=== PATIENT | female | born 1950 | race African-American/Black ===

== ENCOUNTER 2017-02-24 05:47 | Day surgery (SDC) | payer OTHER, BC ==
[2017-02-20 16:14] VITALS: BMI 41.9
[2017-02-24] MEDS ORDERED: MIDAZOLAM HCL 2 MG/2 ML SINGLE DOSE VIAL ONE ×2 (06:30→08:09)
[2017-02-24] MEDS ORDERED: DEXAMETHASONE SOD PHOSPHATE/PF 10 MG/ML SDV ONE (06:30)
[2017-02-24] MEDS ORDERED: ROPIVACAINE HCL 0.5% 30ML VIAL ONE (06:30)
[2017-02-24] MEDS ORDERED: EPINEPHrine 1:1,000 1 MG/1 ML - 30ML VIAL (INJECTION) ONE (07:09)
[2017-02-24] MEDS ORDERED: SUCCINYLCHOLINE CHLORIDE 200 MG/10 ML VIAL ONE (07:50)
[2017-02-24] MEDS ORDERED: PROPOFOL 20 ML ONE ×2 (07:50→08:51)
[2017-02-24] MEDS ORDERED: ONDANSETRON 4 MG/2 ML VIAL ONE ×2 (08:13→09:15)
[2017-02-24] MEDS ORDERED: ceFAZolin SODIUM 1 GM VIAL ONE (08:13)
[2017-02-24] MEDS ORDERED: ONDANSETRON 4 MG/2 ML VIAL IVPUSH PRN (08:33)
[2017-02-24] MEDS ORDERED: oxyCODONE HCL 5 MG TABLET PO PRN ×2 (08:33)
[2017-02-24] MEDS ORDERED: LACTATED RINGERS SOLUTION 1,000 ML IV SCH (08:45)
[2017-02-24 10:37] VITALS: TEMP 97.5
[2017-02-24 14:07] VITALS: BP 128/74; PULSE 73
--- NOTE | 2017-03-04 16:49 | OP ---
DATE OF OPERATION: 02/24/2017 SURGEON: Dwain Cage MD [employer] SUPERVISOR: KAYLA Cortez PREOPERATIVE DIAGNOSES: 1. Right shoulder rotator cuff tear. 2. Right shoulder impingement syndrome. 3. Right shoulder acromioclavicular degenerative joint disease. 4. Right shoulder superior labral tear with anterior-posterior synovitis. POSTOPERATIVE DIAGNOSES: 1. Right shoulder rotator cuff tear. 2. Right shoulder impingement syndrome. 3. Right shoulder acromioclavicular degenerative joint disease. 4. Right shoulder superior labral tear with anterior-posterior synovitis. PROCEDURES PERFORMED: 1. Right shoulder arthroscopy with arthroscopic rotator cuff repair. 2. Right shoulder arthroscopy with subacromial decompression. 3. Right shoulder arthroscopy with resection of the distal clavicle and acromioclavicular joint. 4. Right shoulder arthroscopy with debridement/major. CPT CODES: 51136, 84905, 61651, 40860. FINDINGS: 1. Extensive tearing of the biceps tendon, greater than 85%. 2. Superior labral tear, anterior to posterior, extending into the biceps tendon. 3. Full-thickness rotator cuff tear. 4. Type 2 to 3 acromion with anterolateral spurring. 5. Thickened scar tissue in the subacromial space. 6. spurs of the clavicle with acromioclavicular degenerative joint disease. REPAIR TYPE: The biceps tendon was released due to extensive tearing. Three mattress sutures were placed into the supraspinatus and secured to the bleeding bone bed during the open technique. DESCRIPTION OF PROCEDURE: Informed consent was obtained. The patient was taken to the operating room where the upper extremity was prepped and draped in a sterile fashion. The shoulder was manipulated for a full range of motion. A posterior incision portal was made and directed toward the glenohumeral joint. Under direct visualization, an anterior incision and portal were made. Extensive synovitis, as well as chondral injuries throughout the glenohumeral joint, were debrided and removed. Any identified labral injuries, including superior labral tear, anterior and posterior, and anterior labrum torn portions, were removed as well. The rotator cuff was visualized and noted to have a full-thickness tear. The edges were debrided. The posterior incision portal was redirected to the subacromial space where a lateral incision portal was made. Excessive and thickened scar tissue was noted throughout the subacromial space, including bursal and scar tissue, and removed. The type 2 acromion was converted into a flattened type 1 using a ritu for subacromial decompression. A distal inferior spur at the distal clavicle was also debrided with the use of an accessory portal in the AC joint. The edges of the rotator cuff were identified. Sutures were placed into the rotator cuff and secured using anchors throughout the greater tuberosity. Prior to securing, a bleeding bed was made using a small ritu, creating a bleeding surface for the rotator cuff insertion. The shoulder was then drained. A single suture as placed in all portals and a sterile dressing was placed. The patient was transferred to the recovery room without complication. ADDENDUM: Please note the distal clavicle resection included undersurface 1-cm clavicle extending into the intra-articular portion. DWAIN CAGE M.D. [id number]
== END 2017-02-24 12:25 | disposition home or self-care (01) ==
LOC: FASU 05:47
PROVIDERS: ATTEND Orthopaedic Surgery
PROC: 0RNJ4ZZ Release Right Shoulder Joint, Percutaneous Endoscopic Approach (ICD-10-PCS; 2017-02-24)
PROC: 0PB94ZZ Excision of Right Clavicle, Percutaneous Endoscopic Approach (ICD-10-PCS; 2017-02-24)
PROC: 0RBJ4ZZ Excision of Right Shoulder Joint, Percutaneous Endoscopic Approach (ICD-10-PCS; 2017-02-24)
PROC: 0LB14ZZ Excision of Right Shoulder Tendon, Percutaneous Endoscopic Approach (ICD-10-PCS; principal; 2017-02-24 07:30)
DX: M75.101 Unspecified rotator cuff tear or rupture of right shoulder, not specified as traumatic (principal); M75.41 Impingement syndrome of right shoulder; M19.011 Primary osteoarthritis, right shoulder; M24.111 Other articular cartilage disorders, right shoulder
CPT/HCPCS: 94010; 94760

== ENCOUNTER 2018-08-13 22:25 | Observation (INO) | payer OTHER, BC ==
--- NOTE | 2018-08-13 22:52 | PDOC ---
History of Present Illness - General Chief Complaint: Chest Pain Stated Complaint: CHEST PAIN SINCE THIS AM Time Seen by Provider: 08/13/18 22:32 History Source: Patient Exam Limitations: No Limitations - History of Present Illness Initial Comments: 08/13/18 22:59 This is a 67-year-old female who comes in complaining of chest pain and shortness of breath. Patient said that her was diagnosed with pancreatic cancer approximately one year ago when he has not been doing well even though his scans are coming back negative. Patient is very concerned that she is going to lose him. Patient said that over the last several weeks she has had chest tightness and discomfort with the associated shortness of breath. Patient thinks it is secondary to her anxiety and concern inferior over the potential loss of her however she did have a NC in the past so wants to make sure that it is not anything more serious. Patient describes the chest discomfort as substernal and left-sided and describes it with a sensation as a heaviness. Allergies: as per nursing notes Past Medical History: none Social history: Lives with family. No smoking. No alcohol. No illicit drugs. Surgical history: None General: No fevers or chills, no weakness, no weight loss HEENT: No change in vision. No sore throat,. No ear pain CardioVascular: + chest discomfort. + shortness of breath Respiratory:No cough, or wheezing. Gastrointestinal: no nausea, vomiting, diarrhea or constipation, No rectal bleeding Genitourinary: No dysuria, hematuria, or frequency Musculoskeletal: No joint or muscle pain or swelling Neurologic: No headache, vertigo, dizziness or loss of consciousness Psychiatric: nor depression Skin: No rashes or easy bruising Endocrine: no increased thirst or abnormal weight change Allergic: no skin or latex allergy All other systems reviewed and normal Exam: General: Well-nourished well-developed individual, tearful and anxious HEENT: Throat: Normal, tonsils normal, no erythema or exudate Neck: Supple, no meningeal signs, no lymphadenopathy Eyes::Pupils equal reactive and round, extraocular motion intact Chest: Nontender to palpation Cardiac: S1-S2 normal, regular rate and rhythm, no murmurs rubs or gallops Respiratory: Lungs clear to auscultation bilateral Abdomen: Soft, nondistended, normal bowel sounds, there is no tenderness on palpation diffusely Extremities: Warm, dry, no cyanosis, clubbing, or edema Skin: No rashes Neuro: Alert and oriented x3, CN II - XII intact, nonfocal exam with normal strength, normal sensation, normal reflexes, normal gait, Psych: Normal mood and affect 08/13/18 23:57 08/14/18 00:18 Chest x-ray no acute pathology Assessment and plan: This is a 67-year-old female who comes in complaining of left-sided chest pain. Patient said heart score is 4. Based on her age and risk factors. Patient's EKG shows no acute changes patient will get an observation telemetry bed. Discussed with the hospitalist. Past History - Past Medical History Allergies/Adverse Reactions: Allergies Allergy/AdvReac Type Severity Reaction Status Date / Time No Known Allergies Allergy Verified 02/20/17 16:17 Home Medications: Ambulatory Orders Aspirin [ASA -] 81 mg PO DAILY 02/20/17 Irbesartan/Hydrochlorothiazide [Avalide 300-12.5 mg Tablet] 1 tab PO DAILY 02/20 Zolpidem Tartrate [Ambien] 10 mg PO HS 02/20/17 Anemia: No Asthma: No Cancer: No Cardiac Disorders: Yes (NC -1992,palpitations) CVA: No COPD: No CHF: No Dementia: No Diabetes: No GI Disorders: Yes (acid reflux) Disorders: No HTN: Yes Hypercholesterolemia: No Liver Disease: No Seizures: Yes (last in September 2016) Thyroid Disease: Yes - Surgical History Abdominal Surgery: Yes (gastric bypass) Appendectomy: No Cardiac Surgery: No Cholecystectomy: No Lung Surgery: No Neurologic Surgery: No - Suicide/Smoking/Psychosocial Hx Smoking History: Never smoked Have you smoked in the past 12 months: No Information on smoking cessation initiated: No Hx Alcohol Use: No Drug/Substance Use Hx: No Substance Use Type: None Cardiac Specific PMH - Complaint Specific PMHX Pacemaker: No *Physical Exam - Vital Signs Last Vital Signs Temp Pulse Resp BP Pulse Ox 98 F 76 18 137/79 99 08/13/18 22:41 08/14/18 00:10 08/13/18 22:41 08/14/18 00:10 08/14/18 00:10 Heart Score/ECG Review - History History: Slightly suspicious - Electrocardiogram EKG: Non specific repolarization disturbance - Age Age: >/= 65 - Risk Factors Risk Factors Heart Score: Yes Hx Hypertension Based on the list above the patient has:: 1-2 risk factors - Troponin Troponin: </= normal limit - Score Heart Score - Total: 4 Moderate Sedation - Procedure Monitoring Vital Signs: Procedure Monitoring Vital Signs Temperature 98 F 08/13/18 22:41 Pulse Rate 76 08/14/18 00:10 Respiratory Rate 18 08/13/18 22:41 Blood Pressure 137/79 08/14/18 00:10 O2 Sat by Pulse Oximetry (%) 99 08/14/18 00:10 ED Treatment Course - LABORATORY CBC & Chemistry Diagram: 08/13/18 23:07 08/13/18 23:07 - ADDITIONAL ORDERS Additional order review: Laboratory Results 08/13/18 08/13/18 08/13/18 23:10 23:07 23:07 Sodium Potassium Chloride Carbon Dioxide Anion Gap BUN Creatinine Creat Clearance w eGFR Random Glucose Calcium Total Bilirubin AST ALT Alkaline Phosphatase Creatine Kinase 507 H Creatine Kinase Index 0.8 CK-MB (CK-2) 4.4 H Troponin I < 0.03 Total Protein Albumin Urine Color Yellow Urine Appearance Clear Urine pH 6.0 Ur Specific [place] 1.010 Urine Protein Negative Urine Glucose (UA) Negative Urine Ketones Negative Urine Blood Negative Urine Nitrite Negative Urine Bilirubin Negative Urine Urobilinogen 0.2 Ur Leukocyte Esterase Negative 08/13/18 23:07 Sodium 138 Potassium 3.5 Chloride 98 Carbon Dioxide 26 Anion Gap 14 BUN 10 Creatinine 0.9 Creat Clearance w eGFR 62.08 Random Glucose 103 Calcium 9.7 Total Bilirubin 1.0 AST 29 ALT 19 Alkaline Phosphatase 98 Creatine Kinase Creatine Kinase Index CK-MB (CK-2) Troponin I Total Protein 7.4 Albumin 4.6 Urine Color Urine Appearance Urine pH Ur Specific [place] Urine Protein Urine Glucose (UA) Urine Ketones Urine Blood Urine Nitrite Urine Bilirubin Urine Urobilinogen Ur Leukocyte Esterase 08/13/18 23:07 RBC 5.60 H MCV 85.0 MCHC 31.8 L RDW 14.9 MPV 8.4 Neutrophils % 57.2 Lymphocytes % 30.5 Monocytes % 9.1 Eosinophils % 1.0 Basophils % 2.2 H - RADIOLOGY Radiology Studies Ordered: Category Date Time Status CHEST X-RAY PORTABLE* [RAD] Stat Radiology 08/13/18 22:57 Taken - Medications Given in the ED: ED Medications Discontinued Medications Generic Name Dose Route Start Last Admin Trade Name Freq PRN Reason Stop Dose Admin Lorazepam 2 mg 08/13/18 22:57 08/13/18 23:07 Ativan - PO 08/13/18 22:58 2 mg ONCE ONE Administration *DC/Admit/Observation/Transfer Diagnosis at time of Disposition: Chest pain Qualifiers: Chest pain type: unspecified Qualified Code(s): R07.9 - Chest pain, unspecified - Discharge Dispostion Condition at time of disposition: Stable Decision to Admit order: Yes Decision to Admit order Date/Time: Decision to Admit Order Category Date Time Status Decision to Admit to Hospital Routine Admission 08/13/18 23:58 Active - Referrals - Patient Instructions - Post Discharge Activity
[2018-08-13] MEDS ORDERED: LORazepam 1 MG TABLET PO ONE (22:57)
[2018-08-13] MEDS ORDERED: LORazepam 0.5 MG TABLET ONE (23:07)
[2018-08-13 23:18] LABS: URINE APPEARANCE CLEAR; URINE BILIRUBIN NEGATIVE (NEGATIVE); URINE COLOR YELLOW; URINE GLUCOSE (UA) NEGATIVE (NEGATIVE); URINE KETONE NEGATIVE (NEGATIVE); URINE LEUK ESTERASE NEGATIVE (NEGATIVE); URINE NITRITE NEGATIVE (NEGATIVE); URINE PROTEIN NEGATIVE (NEGATIVE); URINE UROBILINOGEN 0.2 (0.2-1.0)
[2018-08-13 23:18] LABS: BASO % 2.2 % (0-2.0); HEMATOCRIT 47.6 % (32.4-45.2); HEMOGLOBIN 15.1 GM/dl (10.7-15.3); LYMPH % 30.5 % (8-40); MCHC 31.8 g/dl (32.0-36.0); MEAN PLT VOLUME 8.4 fl (7.5-11.1); MONO % 9.1 % (3.8-10.2); NEUT % 57.2 % (42.8-82.8); PLATELET COUNT 326 K/MM3 (134-434); RDW 14.9 % (11.6-15.6); WHITE BLOOD COUNT 6.1 K/mm3 (4.0-10.8)
[2018-08-13 23:29] LABS: ALBUMIN 4.6 g/dl (3.4-5.0); ALK PHOS 98 U/L (45-117); ANION GAP 14 MMOL/L (8-16); BLOOD UREA NITROGEN 10 mg/dl (7-18); CHLORIDE 98 mmol/L (98-107); CO2 26 mmol/L (21-32); CREATININE 0.9 mg/dl (0.55-1.3); GLUCOSE,RANDOM 103 mg/dl (74-106); POTASSIUM 3.5 mmol/L (3.5-5.1); SGOT/AST 29 U/L (15-37); SGPT/ALT 19 U/L (13-61); SODIUM 138 mmol/L (136-145); TOT PROT 7.4 g/dl (6.4-8.2)
[2018-08-13 23:40] LABS: CALCIUM 9.7 mg/dl (8.5-10)
[2018-08-14] MEDS ORDERED: ASPIRIN 81 MG CHEWABLE TABLETS PO ONE (00:31)
[2018-08-14] MEDS ORDERED: ASPIRIN 81 MG CHEWABLE TABLETS ONE ×2 (00:32→00:36)
[2018-08-14 01:50] VITALS: BMI 40.0
[2018-08-14 08:05] LABS: ANION GAP 10 MMOL/L (8-16); BLOOD UREA NITROGEN 9 mg/dl (7-18); CHLORIDE 103 mmol/L (98-107); CO2 25 mmol/L (21-32); CREATININE 0.8 mg/dl (0.55-1.3); GLUCOSE,RANDOM 108 mg/dl (74-106); PHOSPHOROUS 3.5 mg/dl (2.5-4.9); POTASSIUM 4.1 mmol/L (3.5-5.1); SODIUM 138 mmol/L (136-145)
[2018-08-14 08:07] LABS: BASO % 0.3 % (0-2.0); CHOLESTEROL 141 mg/dl (50-200); EOS % 1.1 % (0-4.5); HDL CHOLESTEROL 46 mg/dl (40-60); HEMATOCRIT 43.8 % (32.4-45.2); HEMOGLOBIN 13.9 GM/dl (10.7-15.3); LDL CHOLESTEROL (ONLY DFH) 73 mg/dl (5-100); LYMPH % 27.3 % (8-40); MCH 26.9 pg (25.7-33.7); MCHC 31.6 g/dl (32.0-36.0); MEAN PLT VOLUME 8.8 fl (7.5-11.1); NEUT % 59.3 % (42.8-82.8); PLATELET COUNT 267 K/MM3 (134-434); RBC 5.16 M/mm3 (3.60-5.2); RDW 14.9 % (11.6-15.6); TRIGLYCERIDES 110 mg/dl (0-150)
--- NOTE | 2018-08-14 08:12 | HP ---
CHIEF COMPLAINT: PCP: HISTORY OF PRESENT ILLNESS: This is a 67-year-old female who comes in complaining of chest pain and shortness of breath. Patient said that her was diagnosed with pancreatic cancer approximately one year ago when he has not been doing well even though his scans are coming back negative. Patient is very concerned that she is going to lose him. Patient said that over the last several weeks she has had chest tightness and discomfort with the associated shortness of breath. Patient thinks it is secondary to her anxiety and concern inferior over the potential loss of her however she did have a CT in the past so wants to make sure that it is not anything more serious. Patient describes the chest discomfort as substernal and left-sided and describes it with a sensation as a heaviness. ER course was notable for: (1) (2) (3) Recent Travel: PAST MEDICAL HISTORY: Hypertension Coronary artery disease s/p CT Seizure disorder GERD Hypothyroidism PAST SURGICAL HISTORY: Gastric bypass Right shoulder rotator cuff repair Social History: Smoking: never Alcohol: no Drugs: no Family History: Allergies No Known Allergies Allergy (Verified 02/20/17 16:17) HOME MEDICATIONS: Home Medications Medication Instructions Recorded Aspirin [ASA -] 81 mg PO DAILY 02/20/17 Irbesartan/Hydrochlorothiazide 1 tab PO DAILY 02/20/17 [Avalide 300-12.5 mg Tablet] Zolpidem Tartrate [Ambien] 10 mg PO HS 02/20/17 REVIEW OF SYSTEMS CONSTITUTIONAL: Absent: fever, chills, diaphoresis, generalized weakness, malaise, loss of appetite, weight change HEENT: Absent: rhinorrhea, nasal congestion, throat pain, throat swelling, difficulty swallowing, mouth swelling, ear pain, eye pain, visual changes CARDIOVASCULAR: Absent: chest pain, syncope, palpitations, irregular heart rate, lightheadedness , peripheral edema RESPIRATORY: Absent: cough, shortness of breath, dyspnea with exertion, orthopnea, wheezing, stridor, hemoptysis GASTROINTESTINAL: Absent: abdominal pain, abdominal distension, nausea, vomiting, diarrhea, constipation, melena, hematochezia GENITOURINARY: Absent: dysuria, frequency, urgency, hesitancy, hematuria, flank pain, genital pain MUSCULOSKELETAL: Absent: myalgia, arthralgia, joint swelling, back pain, neck pain SKIN: Absent: rash, itching, pallor HEMATOLOGIC/IMMUNOLOGIC: Absent: easy bleeding, easy bruising, lymphadenopathy, frequent infections ENDOCRINE: Absent: unexplained weight gain, unexplained weight loss, heat intolerance, cold intolerance NEUROLOGIC: Absent: headache, focal weakness or paresthesias, dizziness, unsteady gait, seizure, mental status changes, bladder or bowel incontinence PSYCHIATRIC: Absent: anxiety, depression, suicidal or homicidal ideation, hallucinations. PHYSICAL EXAMINATION Vital Signs - 24 hr 08/13/18 08/13/18 08/14/18 22:41 22:47 00:10 Temperature 98 F Pulse Rate 90 Pulse Rate [ 76 Left] Respiratory 18 Rate Blood Pressure 160/112 H Blood Pressure 190/108 H 137/79 [Right] O2 Sat by Pulse 100 99 Oximetry (%) 08/14/18 08/14/18 08/14/18 00:39 01:32 06:00 Temperature 97.8 F 97.8 F 98.3 F Pulse Rate 103 H 103 H 79 Pulse Rate [ Left] Respiratory 20 20 20 Rate Blood Pressure 158/104 H 158/104 H 149/79 Blood Pressure [Right] O2 Sat by Pulse 100 100 100 Oximetry (%) GENERAL: Awake, alert, and fully oriented, in no acute distress. HEAD: Normal with no signs of trauma. EYES: Pupils equal, round and reactive to light, extraocular movements intact, sclera anicteric, conjunctiva clear. No lid lag. EARS, NOSE, THROAT: Ears normal, nares patent, oropharynx clear without exudates. Moist mucous membranes. NECK: Normal range of motion, supple without lymphadenopathy, JVD, or masses. LUNGS: Breath sounds equal, clear to auscultation bilaterally. No wheezes, and no crackles. No accessory muscle use. HEART: Regular rate and rhythm, normal S1 and S2 without murmur, rub or gallop. ABDOMEN: Soft, nontender, not distended, normoactive bowel sounds, no guarding, no rebound, no masses. No hepatomegaly or splenomegaly. MUSCULOSKELETAL: Normal range of motion at all joints. No bony deformities or tenderness. No CVA tenderness. UPPER EXTREMITIES: 2+ pulses, warm, well-perfused. No cyanosis. No clubbing. No peripheral edema. LOWER EXTREMITIES: 2+ pulses, warm, well-perfused. No calf tenderness. No peripheral edema. NEUROLOGICAL: Cranial nerves II-XII intact. Normal speech. Normal gait. PSYCHIATRIC: Cooperative. Good eye contact. Appropriate mood and affect. SKIN: Warm, dry, normal turgor, no rashes or lesions noted, normal capillary refill. Laboratory Results - last 24 hr 08/13/18 08/13/18 08/13/18 23:07 23:07 23:07 WBC 6.1 RBC 5.60 H Hgb 15.1 Hct 47.6 H MCV 85.0 MCH 27.0 MCHC 31.8 L RDW 14.9 Plt Count 326 MPV 8.4 Absolute Neuts (auto) 3.4 Neutrophils % 57.2 Lymphocytes % 30.5 Monocytes % 9.1 Eosinophils % 1.0 Basophils % 2.2 H Sodium 138 Potassium 3.5 Chloride 98 Carbon Dioxide 26 Anion Gap 14 BUN 10 Creatinine 0.9 Creat Clearance w eGFR 62.08 Random Glucose 103 Calcium 9.7 Total Bilirubin 1.0 AST 29 ALT 19 Alkaline Phosphatase 98 Creatine Kinase Creatine Kinase Index CK-MB (CK-2) Troponin I < 0.03 Total Protein 7.4 Albumin 4.6 Urine Color Urine Appearance Urine pH Ur Specific [place] Urine Protein Urine Glucose (UA) Urine Ketones Urine Blood Urine Nitrite Urine Bilirubin Urine Urobilinogen Ur Leukocyte Esterase 08/13/18 08/13/18 08/14/18 23:07 23:10 07:05 WBC RBC Hgb Hct MCV MCH MCHC RDW Plt Count MPV Absolute Neuts (auto) Neutrophils % Lymphocytes % Monocytes % Eosinophils % Basophils % Sodium Potassium Chloride Carbon Dioxide Anion Gap BUN Creatinine Creat Clearance w eGFR Random Glucose Calcium Total Bilirubin AST ALT Alkaline Phosphatase Creatine Kinase 507 H Creatine Kinase Index 0.8 CK-MB (CK-2) 4.4 H Troponin I < 0.03 Total Protein Albumin Urine Color Yellow Urine Appearance Clear Urine pH 6.0 Ur Specific [place] 1.010 Urine Protein Negative Urine Glucose (UA) Negative Urine Ketones Negative Urine Blood Negative Urine Nitrite Negative Urine Bilirubin Negative Urine Urobilinogen 0.2 Ur Leukocyte Esterase Negative ASSESSMENT/PLAN:
[2018-08-14] MEDS ORDERED: ZOLPIDEM TARTRATE 5 MG TABLET PO PRN (08:40)
[2018-08-14] MEDS ORDERED: VALSARTAN 160 MG TABLET (UD) PO SCH (10:00)
[2018-08-14] MEDS ORDERED: HYDROCHLOROTHIAZIDE 12.5 MG CAPSULE (FP) PO SCH (10:00)
[2018-08-14] MEDS ORDERED: ASPIRIN 81 MG CHEWABLE TABLETS PO SCH (10:00)
[2018-08-14] MEDS ORDERED: PATIENT'S OWN MEDICATION (NON-FORMULARY) (Irbesartan/Hydrochlorothiazide [Avalide 300-12.5 PO SCH (10:00)
--- NOTE | 2018-08-14 10:44 | EKG ---
Test Reason : Blood Pressure : / mmHG Vent. Rate : 075 BPM Atrial Rate : 075 BPM P-R Int : 164 ms QRS Dur : 076 ms QT Int : 386 ms P-R-T Axes : 032 -04 040 degrees QTc Int : 431 ms POOR DATA QUALITY, INTERPRETATION MAY BE ADVERSELY AFFECTED NORMAL SINUS RHYTHM INFERIOR INFARCT , AGE UNDETERMINED ABNORMAL ECG NO PREVIOUS ECGS AVAILABLE Confirmed by Marino Phillip MD ([id number]) on 08/14/2018 10:44:14 AM Referred By: Confirmed By:Marino Phillip MD
[2018-08-14 14:25] VITALS: BP 146/69; PULSE 68; TEMP 98.6
--- NOTE | 2018-08-14 16:09 | ECHO ---
Name: RANDY OREILLY Exam:Adult Echocardiogram Study Date: 08/14/2018 02:12 PM Age: 67 yrs Reason For Study: Chest pain Height: 60 in Weight: 260 lb BSA: 2.1 m2 MMode/2D Measurements & Calculations IVSd: 1.2 cm Ao root diam: 2.8 cm LVIDd: 3.7 cm LA dimension: 3.0 cm LVIDs: 2.6 cm LVPWd: 0.89 cm EDV(Teich): 57.6 ml LVOT diam: 1.7 cm ESV(Teich): 24.8 ml Doppler Measurements & Calculations MV E max ashlee: 86.4 cm/sec MV A max ashlee: 108.6 cm/sec MV dec slope: 662.0 cm/sec2 MV E/A: 0.80 Ao V2 max: 180.6 cm/sec LV V1 max P.7 mmHg Ao max P.0 mmHg LV V1 max: 96.6 cm/sec SHANEKA(V,D): 1.2 cm2 TR max ashlee: 220.5 cm/sec TR max P.5 mmHg Procedure A complete two-dimensional transthoracic echocardiogram was performed (2D, M-mode, Doppler and color flow Doppler). Left Ventricle The left ventricular size, thickness and function are normal. Ejection Fraction = 65%. The transmitra l spectral Doppler flow pattern is suggestive of impaired LV relaxation. The left ventricular wall ravin on is normal. Right Ventricle The right ventricle is normal in size and function. Atria Normal left and right atrial size and function. Mitral Valve The mitral valve is normal in structure and function. There is trace mitral regurgitation. Tricuspid Valve The tricuspid valve is normal in structure and function. There is trace tricuspid regurgitation. Righ t ventricular systolic pressure is 25 mmhg. Aortic Valve There is trivial aortic valve thickening. Trace aortic regurgitation. Pulmonic Valve The pulmonic valve is not well visualized. Great Vessels The aortic root is normal size. Pericardium/Pleura There is no pericardial effusion. There is no pleural effusion. Interpretation Summary The left ventricular size, thickness and function are normal Ejection Fraction = 65%. There is trace mitral regurgitation. There is trace tricuspid regurgitation. Right ventricular systolic pressure is 25 mmhg. Trace aortic regurgitation. MD Marino Phillip 08/14/2018 04:09 PM
[2018-08-14] MEDS ORDERED: LORazepam 0.5 MG TABLET PO PRN (17:45)
[2018-08-14] MEDS ORDERED: PATIENT'S OWN MEDICATION (NON-FORMULARY) (Zolpidem Tartrate [Ambien] 10 MG) PO SCH (22:00)
--- NOTE | 2018-08-14 22:50 | DS ---
Physical Exam: SUBJECTIVE: Patient seen and examined OBJECTIVE: Vital Signs Period Temp Pulse Resp BP Sys/Mejia Pulse Ox Last 24 Hr 97.6 F-98.6 F 68-103 16-20 137-158/69-104 98-100 PHYSICAL EXAM GENERAL: The patient is awake, alert, and fully oriented, in no acute distress. HEAD: Normal with no signs of trauma. EYES: PERRL, extraocular movements intact, sclera anicteric, conjunctiva clear. ENT: Ears normal, nares patent, oropharynx clear without exudates, moist mucous membranes. NECK: Trachea midline, full range of motion, supple. LUNGS: Breath sounds equal, clear to auscultation bilaterally, no wheezes, no crackles, no accessory muscle use. HEART: Regular rate and rhythm, S1, S2 without murmur, rub or gallop. ABDOMEN: Soft, nontender, nondistended, normoactive bowel sounds, no guarding, no rebound, no hepatosplenomegaly, no masses. EXTREMITIES: 2+ pulses, warm, well-perfused, no edema. NEUROLOGICAL: Cranial nerves II through XII grossly intact. Normal speech, gait not observed. PSYCH: Normal mood, normal affect. SKIN: Warm, dry, normal turgor, no rashes or lesions noted. LABS Laboratory Results - last 24 hr 08/13/18 08/13/18 08/13/18 23:07 23:07 23:07 WBC 6.1 RBC 5.60 H Hgb 15.1 Hct 47.6 H MCV 85.0 MCH 27.0 MCHC 31.8 L RDW 14.9 Plt Count 326 MPV 8.4 Absolute Neuts (auto) 3.4 Neutrophils % 57.2 Lymphocytes % 30.5 Monocytes % 9.1 Eosinophils % 1.0 Basophils % 2.2 H Sodium 138 Potassium 3.5 Chloride 98 Carbon Dioxide 26 Anion Gap 14 BUN 10 Creatinine 0.9 Creat Clearance w eGFR 62.08 Random Glucose 103 Calcium 9.7 Phosphorus Magnesium Total Bilirubin 1.0 AST 29 ALT 19 Alkaline Phosphatase 98 Creatine Kinase Creatine Kinase Index CK-MB (CK-2) Troponin I < 0.03 Total Protein 7.4 Albumin 4.6 Triglycerides Cholesterol Total LDL Cholesterol HDL Cholesterol Urine Color Urine Appearance Urine pH Ur Specific [place] Urine Protein Urine Glucose (UA) Urine Ketones Urine Blood Urine Nitrite Urine Bilirubin Urine Urobilinogen Ur Leukocyte Esterase 08/13/18 08/13/18 08/14/18 23:07 23:10 06:30 WBC 5.0 RBC 5.16 Hgb 13.9 Hct 43.8 MCV 85.0 MCH 26.9 MCHC 31.6 L RDW 14.9 Plt Count 267 MPV 8.8 Absolute Neuts (auto) 2.9 Neutrophils % 59.3 Lymphocytes % 27.3 Monocytes % 12.0 H Eosinophils % 1.1 Basophils % 0.3 Sodium Potassium Chloride Carbon Dioxide Anion Gap BUN Creatinine Creat Clearance w eGFR Random Glucose Calcium Phosphorus Magnesium Total Bilirubin AST ALT Alkaline Phosphatase Creatine Kinase 507 H Creatine Kinase Index 0.8 CK-MB (CK-2) 4.4 H Troponin I Total Protein Albumin Triglycerides Cholesterol Total LDL Cholesterol HDL Cholesterol Urine Color Yellow Urine Appearance Clear Urine pH 6.0 Ur Specific [place] 1.010 Urine Protein Negative Urine Glucose (UA) Negative Urine Ketones Negative Urine Blood Negative Urine Nitrite Negative Urine Bilirubin Negative Urine Urobilinogen 0.2 Ur Leukocyte Esterase Negative 08/14/18 08/14/18 08/14/18 06:30 06:30 07:05 WBC RBC Hgb Hct MCV MCH MCHC RDW Plt Count MPV Absolute Neuts (auto) Neutrophils % Lymphocytes % Monocytes % Eosinophils % Basophils % Sodium 138 Potassium 4.1 Chloride 103 Carbon Dioxide 25 Anion Gap 10 BUN 9 Creatinine 0.8 Creat Clearance w eGFR 71.12 Random Glucose 108 H Calcium 9.0 Phosphorus 3.5 Magnesium 2.0 Total Bilirubin AST ALT Alkaline Phosphatase Creatine Kinase Creatine Kinase Index CK-MB (CK-2) Troponin I < 0.03 Total Protein Albumin Triglycerides 110 Cholesterol 141 Total LDL Cholesterol 73 HDL Cholesterol 46 Urine Color Urine Appearance Urine pH Ur Specific [place] Urine Protein Urine Glucose (UA) Urine Ketones Urine Blood Urine Nitrite Urine Bilirubin Urine Urobilinogen Ur Leukocyte Esterase 08/14/18 11:50 WBC RBC Hgb Hct MCV MCH MCHC RDW Plt Count MPV Absolute Neuts (auto) Neutrophils % Lymphocytes % Monocytes % Eosinophils % Basophils % Sodium Potassium Chloride Carbon Dioxide Anion Gap BUN Creatinine Creat Clearance w eGFR Random Glucose Calcium Phosphorus Magnesium Total Bilirubin AST ALT Alkaline Phosphatase Creatine Kinase Creatine Kinase Index CK-MB (CK-2) Troponin I < 0.03 Total Protein Albumin Triglycerides Cholesterol Total LDL Cholesterol HDL Cholesterol Urine Color Urine Appearance Urine pH Ur Specific [place] Urine Protein Urine Glucose (UA) Urine Ketones Urine Blood Urine Nitrite Urine Bilirubin Urine Urobilinogen Ur Leukocyte Esterase HOSPITAL COURSE: Date of Admission:08/14/18 Date of AMA: 08/14/18 Not seen by cardiology; spoke with Dr. Son; will not see patient until morning Ill Minutes to complete discharge: 35 Discharge Summary Reason For Visit: CHEST PAIN Condition: Stable - Instructions Disposition: AGAINST MEDICAL ADVICE - Home Medications Comprehensive Discharge Medication List: Ambulatory Orders Aspirin [ASA -] 81 mg PO DAILY 02/20/17 Irbesartan/Hydrochlorothiazide [Avalide 300-12.5 mg Tablet] 1 tab PO DAILY 02/20 Zolpidem Tartrate [Ambien] 10 mg PO HS 02/20/17 This patient is new to me today: No Emergency Visit: Yes ED Registration Date: 08/13/18 Care time: The patient presented to the Emergency Department on the above date and was hospitalized for further evaluation of their emergent condition. Critical Care patient: No - Discharge Referral Referred to [facility] Med P.C.: No
== END 2018-08-14 20:18 | disposition left against medical advice (07) ==
LOC: FER 22:25 → FM/S 23:58 → UNDOADMOB 08-14 00:39 → FM/S 08-14 00:39
PROVIDERS: ADMIT Internal Medicine; ATTEND Nurse Practitioner Acute Care
DX: R07.9 Chest pain, unspecified (principal); I10 Essential (primary) hypertension; I25.10 Atherosclerotic heart disease of native coronary artery without angina pectoris; I25.2 Old myocardial infarction; K21.9 Gastro-esophageal reflux disease without esophagitis; G40.909 Epilepsy, unspecified, not intractable, without status epilepticus; E03.9 Hypothyroidism, unspecified; Z98.84 Bariatric surgery status; Z79.82 Long term (current) use of aspirin
CPT/HCPCS: 36415; 71045-TC-FY; 80048; 80053; 80061; 81003; 82550; 82553; 83735; 84100; 84484; 85025; 93005; 93306-TC; 99285-25; G0378